=== PATIENT | male | born 1985 | race Two or more races ===

== ENCOUNTER 2022-06-24 16:32 | Emergency (ER) | payer SELFPAY ==
[~2022-06-24] VITALS: Ht 177.8 cm; Wt 65.8 kg
[2022-06-24 17:35] VITALS: BP 118/76
[2022-06-24] MEDS ORDERED: CEPH500T PO (18:28)
[2022-06-24] MEDS ORDERED: SULF1TAB48 PO (18:28)
--- NOTE | 2022-06-24 18:43 | NUR ---
Patient discharged to home in stable condition. Written and verbal after care instructions given. Patient verbalizes understanding of instruction.
== END 2022-06-24 18:44 | disposition home or self-care (01) ==
LOC: ER 16:41
DX: K61.1 Rectal abscess (principal); Z60.2 Problems related to living alone; Z79.899 Other long term (current) drug therapy